=== PATIENT | female | born 1985 | race Caucasian/White ===

== ENCOUNTER 2018-02-18 14:09 | Emergency (ER) | payer OTHER ==
[~2018-02-18] VITALS: Ht 165.1 cm; Wt 63.5 kg
[2018-02-18] MEDS ORDERED: WELLBUTRIN XL300 MG (14:38)
[2018-02-18] MEDS ORDERED: LEXAPRO20 MG (14:38)
== END 2018-02-18 15:59 | disposition home or self-care (01) ==
LOC: ER 14:09
DX: F41.8 Other specified anxiety disorders (principal)